=== PATIENT | male | born 1960 | race Caucasian/White ===

== ENCOUNTER → 2016-09-28 | Outpatient (CLI) | payer SELFPAY ==
[2016-09-28 07:33] LABS: Anion Gap 10 mmol/L; Blood Urea Nitrogen 18 mg/dL (9-20); Calcium 9.4 mg/dL (8.4-10.2); Carbon Dioxide 28 mmol/L (22-30); Chloride 102 mmol/L (98-107); Cholesterol 202 mg/dL (<200); Glucose 141 mg/dL (74-99); HDL Cholesterol 44 mg/dL (40-60); Non-African American GFR(MDRD) >60 (>60 ml/min/1.73 sqM); Potassium 4.1 mmol/L (3.5-5.1); Sodium 140 mmol/L (137-145)
[2016-09-28 09:12] LABS: Hemoglobin A1C 6.1 % (4.2-6.1)
== END | disposition home or self-care (01) ==
LOC: LABWHC1 06:49
PROVIDERS: ATTEND Internal Medicine
DX: E11.69 Type 2 diabetes mellitus with other specified complication (principal); E78.4 Other hyperlipidemia; E87.8 Other disorders of electrolyte and fluid balance, not elsewhere classified
CPT/HCPCS: 36415; 80048; 80061; 83036

== ENCOUNTER → 2018-01-25 | Outpatient (CLI) | payer OTHER ==
[2018-01-25 07:51] LABS: HCT 48.3 % (39.0-53.0); HGB 16.4 gm/dL (13.0-17.5); MCH 30.9 pg (25.0-35.0); MCV 90.7 fL (80.0-100.0); Mean Platelet Volume 6.5; Platelet Count 323 k/uL (150-450); RBC 5.33 m/uL (4.30-5.90); RDW 13.6 % (11.5-15.5); WBC 9.1 k/uL (3.8-10.6)
[2018-01-25 16:13] LABS: Hemoglobin A1C 7.8 % (4.0-6.0)
[2018-01-25 17:07] LABS: Albumin 4.2 g/dL (3.80-4.90); Albumin/Globulin Ratio 1.91 (1.20-2.10); Anion Gap 8.6 mmol/L (4.00-12.00); Calcium 9.7 mg/dL (8.7-10.3); Carbon Dioxide 28.4 mmol/L (21.6-31.8); Globulin 2.2 g/dL (2.1-3.7); LDL Cholesterol,Calculated 141.2 mg/dL (0.0-131.0); Potassium 4.7 mmol/L (3.5-5.5); Total Bilirubin 0.7 mg/dL (0.3-1.2); Total Protein 6.4 g/dL (6.2-8.2); VLDL Calculation 20.8 mg/dL (5.00-40.00)
== END ==
LOC: LABWHC1 07:10
PROVIDERS: ATTEND Internal Medicine
DX: E78.41 Elevated Lipoprotein(a) (principal); E87.8 Other disorders of electrolyte and fluid balance, not elsewhere classified; E11.69 Type 2 diabetes mellitus with other specified complication; N40.0 Benign prostatic hyperplasia without lower urinary tract symptoms; R53.83 Other fatigue
CPT/HCPCS: 36415; 80053; 80061; 83036; 84153; 85027

== ENCOUNTER 2018-03-01 13:44 | Emergency (ER) | payer OTHER ==
[2018-03-01 13:54] VITALS: RESP 18; TEMP 98.6
--- NOTE | 2018-03-01 14:18 | ED ---
General Adult HPI - General Chief complaint: Fall Stated complaint: Fall, neck injury Time Seen by Provider: 03/01/18 14:03 Source: patient, RN notes reviewed Mode of arrival: ambulatory Limitations: no limitations - History of Present Illness Initial comments: Patient is a pleasant 57-year-old male presenting to the emergency department following a fall. Patient slipped and fell on ice. Patient states he did land on his right elbow, right knee, tailbone. Patient is unclear whether or not he may have struck his neck. Patient denies any head injury or loss of consciousness. Patient states he was being examined by a physician assistant at surgery, his neck was being pushed on and he had some dizziness during that time. Patient states it was not uncomfortable. Patient denies any weakness. - Related Data Home Medications Medication Instructions Recorded Confirmed Losartan/Hydrochlorothiazide 2 tab PO DAILY 06/21/15 03/01/18 [Losartan-Hctz 50-12.5 mg Tab] Potassium Chloride [Klor-Con 10] 10 meq PO DAILY 03/01/18 03/01/18 metFORMIN HCL ER [Glucophage Xr] 500 mg PO DAILY 03/01/18 03/01/18 Allergies Allergy/AdvReac Type Severity Reaction Status Date / Time No Known Allergies Allergy Verified 03/01/18 14:50 Review of Systems ROS Statement: Those systems with pertinent positive or pertinent negative responses have been documented in the HPI. ROS Other: All systems not noted in ROS Statement are negative. Constitutional: Denies: fever Eyes: Denies: eye pain ENT: Denies: ear pain Respiratory: Denies: cough Cardiovascular: Denies: chest pain Endocrine: Denies: fatigue Gastrointestinal: Denies: abdominal pain Genitourinary: Denies: dysuria Musculoskeletal: Reports: back pain (Patient has discomfort left side of the sacral region.) Skin: Denies: rash Neurological: Denies: headache, weakness, confusion Past Medical History Past Medical History: Diabetes Mellitus, Hypertension History of Any Multi-Drug Resistant Organisms: None Reported Past Surgical History: No Surgical Hx Reported Additional Past Surgical History / Comment(s): R shoulder pioma removed, vascualr surgery L leg Past Psychological History: No Psychological Hx Reported Smoking Status: Never smoker Past Alcohol Use History: None Reported Past Drug Use History: None Reported General Exam Limitations: no limitations General appearance: alert, in no apparent distress Head exam: Present: atraumatic Eye exam: Present: normal appearance, PERRL, EOMI ENT exam: Present: normal oropharynx Neck exam: Present: normal inspection, other (C-collar is present). Absent: tenderness Respiratory exam: Present: normal lung sounds bilaterally Cardiovascular Exam: Present: regular rate, normal rhythm GI/Abdominal exam: Present: soft. Absent: distended, tenderness Extremities exam: Present: normal inspection, full ROM. Absent: tenderness Back exam: Present: tenderness (moderate tenderness left sacral region) Neurological exam: Present: alert, oriented X3, CN II-XII intact. Absent: motor sensory deficit Expanded Speech: Present: fluid speech Motor strength exam: RUE: 5, LUE: 5, RLE: 5, LLE: 5 Eye Response: (4) open spontaneously Motor Response: (6) obeys commands Verbal Response: (5) oriented Psychiatric exam: Present: normal affect, normal mood Skin exam: Present: normal color Course Vital Signs 03/01/18 13:49 Temperature 98.6 F Pulse Rate 78 Respiratory 18 Rate Blood Pressure 164/110 O2 Sat by Pulse 96 Oximetry Medical Decision Making - Medical Decision Making Patient reevaluated and resting comfortably in bed. Patient and family updated on results. - Radiology Data Radiology results: image reviewed (Cervical spine x-ray, pelvis x-ray, and sacral x-ray reveals no acute process.) Disposition Clinical Impression: Fall, Sacral contusion Disposition: HOME SELF-CARE Condition: Stable Instructions (If sedation given, give patient instructions): Back Pain (ED) Additional Instructions: [id number] Tylenol or Motrin as needed. Please follow-up with primary care physician in the next day or 2 for recheck. Return for weakness, worsening or changing symptoms or other concerns. Is patient prescribed a controlled substance at d/c from ED?: No Referrals: Lopez Edouard MD [Primary Care Provider] - 1-2 days Time of Disposition: 16:22
--- NOTE | 2018-03-01 15:48 | XR ---
EXAMINATION TYPE: XR pelvis AP view, XR sacrum coccyx DATE OF EXAM: 03/01/2018 CLINICAL HISTORY: pain TECHNIQUE: Three views of the sacrum and coccyx are submitted. COMPARISON: Sacral alae appear symmetric. No evidence for fracture or bony lesion. Sacroiliac joints are within normal limits. Visualized coccygeal segments are free of fracture or lesion. IMPRESSION: Normal study EXAMINATION TYPE: XR pelvis AP view, XR sacrum coccyx DATE OF EXAM: 03/01/2018 CLINICAL HISTORY: pain TECHNIQUE: Single view the pelvis is submitted. FINDINGS: No evidence for fracture, dislocation or bony lesion. Joint spaces are well-preserved. S I joints appear symmetric. Severe degenerative change lumbar spine. IMPRESSION: 1. No acute fracture or dislocation seen. ICD 10 NO FRACTURE, INITIAL EVALUATION
--- NOTE | 2018-03-01 15:50 | XR ---
EXAMINATION TYPE: XR cervical spine trauma DATE OF EXAM: 03/01/2018 CLINICAL HISTORY: pain COMPARISON: NONE TECHNIQUE: Frontal, lateral, oblique, swimmers, and open mouth view of the cervical spine are obtaine d. FINDINGS: The cervical spine is visualized in its entirety from C1 thru the top of T1 level. It is s atisfactory in alignment without evidence of acute fracture or dislocation. The pre-vertebral soft t issue appears within normal limits. Mild degenerative changes noted. The C1-C2 articulation is unrema rkable on the open mouth view. The oblique images are within normal limits. IMPRESSION: No acute fracture or dislocation is seen in the cervical spine.ICD 10 NO FRACTURE, INITI AL EVALUATION
[2018-03-01 16:47] VITALS: PULSE 82
[2018-03-01 17:10] VITALS: BP 143/83
== END 2018-03-01 17:08 | disposition home or self-care (01) ==
LOC: EC 13:44
DX: S30.0XXA Contusion of lower back and pelvis, initial encounter (principal); I10 Essential (primary) hypertension; E11.9 Type 2 diabetes mellitus without complications; Z79.84 Long term (current) use of oral hypoglycemic drugs; Z79.899 Other long term (current) drug therapy; W00.0XXA Fall on same level due to ice and snow, initial encounter; Y92.69 Other specified industrial and construction area as the place of occurrence of the external cause; Y99.0 Civilian activity done for income or pay
CPT/HCPCS: 72050; 72170; 72220; 99283

== ENCOUNTER → 2018-03-03 | Outpatient (CLI) | payer OTHER ==
--- NOTE | 2018-03-03 11:35 | XR ---
EXAMINATION TYPE: XR chest 2V, XR ribs LT DATE OF EXAM: 03/03/2018 COMPARISON: NONE HISTORY: Shortness of breath TECHNIQUE: Frontal and lateral views of the chest are obtained. FINDINGS: Scattered senescent parenchymal changes noted. Hyperinflation compatible with COPD. No evidence for infiltrate. No evidence for atelectasis. Heart size is stable. Mediastinal structures are stable and grossly unremarkable. No evidence for hilar prominence. Degenerative changes dorsal spine. IMPRESSION: 1. No evidence for acute pulmonary disease. EXAMINATION TYPE: XR chest 2V, XR ribs LT DATE OF EXAM: 03/03/2018 CLINICAL HISTORY: Pain, Fall Four views of the ribs fail demonstrate evidence for displaced rib fracture or secondary sign of rib fracture. Visualized lungs are clear. No evidence for pneumothorax. IMPRESSION: No displaced rib fractures seen. ICD 10 NO FRACTURE, INITIAL EVALUATION
== END | disposition home or self-care (01) ==
LOC: RADXRMAIN 11:09
PROVIDERS: ATTEND Emergency Medicine
DX: S20.20XD Contusion of thorax, unspecified, subsequent encounter (principal)
CPT/HCPCS: 71046

== ENCOUNTER 2018-07-21 19:56 | Emergency (ER) | payer OTHER ==
[2018-07-21 20:02] VITALS: RESP 20
[2018-07-21] MEDS ORDERED: ONDANSETRON 4 MG/2 ML VIAL IVP STA (20:19)
[2018-07-21] MEDS ORDERED: SODIUM CHLORIDE 0.9% 1,000 ML IV STA ×3 (20:19→21:37)
[2018-07-21] MEDS ORDERED: SODIUM CHLORIDE 0.9% 500 ML 500 ML IV STA (20:19)
--- NOTE | 2018-07-21 20:22 | ED ---
Nausea/Vomiting/Diarrhea HPI - General Chief complaint: Nausea/Vomiting/Diarrhea Stated complaint: Diarrhea,Dehydration-from [facility] Time Seen by Provider: 07/21/18 20:19 Source: patient, RN notes reviewed, old records reviewed Mode of arrival: ambulatory Limitations: no limitations - History of Present Illness Initial comments: This is a 57-year-old male the ER for evaluation. Presents today for evaluation regarding diarrhea, multiple wounds of diarrhea today. Patient has no abdominal pain. Mild nausea no vomiting. Patient states has similar complaint after eating some ice cream last night. Patient does have history of diabetes denying any again denies any abdominal pain. Patient just feels weak lightheaded and dizzy feels like he may pass out. - Related Data Home Medications Medication Instructions Recorded Confirmed Losartan/Hydrochlorothiazide 2 tab PO DAILY 06/21/15 07/21/18 [Losartan-Hctz 50-12.5 mg Tab] Potassium Chloride [Klor-Con 10] 10 meq PO DAILY 03/01/18 07/21/18 metFORMIN HCL ER [Glucophage Xr] 500 mg PO HS 03/01/18 07/21/18 Cinnamon Bark [Cinnamon] 500 mg PO DAILY 07/21/18 07/21/18 Allergies Allergy/AdvReac Type Severity Reaction Status Date / Time No Known Allergies Allergy Verified 07/21/18 20:32 Review of Systems ROS Statement: Those systems with pertinent positive or pertinent negative responses have been documented in the HPI. ROS Other: All systems not noted in ROS Statement are negative. Past Medical History Past Medical History: Diabetes Mellitus, Hypertension History of Any Multi-Drug Resistant Organisms: None Reported Past Surgical History: No Surgical Hx Reported Additional Past Surgical History / Comment(s): R shoulder pioma removed, vascualr surgery L leg Past Psychological History: No Psychological Hx Reported Smoking Status: Never smoker Past Alcohol Use History: None Reported Past Drug Use History: None Reported General Exam Limitations: no limitations General appearance: alert, in no apparent distress Head exam: Present: atraumatic, normocephalic, normal inspection Eye exam: Present: normal appearance, PERRL, EOMI. Absent: scleral icterus, conjunctival injection, periorbital swelling ENT exam: Present: normal exam, mucous membranes moist Neck exam: Present: normal inspection. Absent: tenderness, meningismus, lymphadenopathy Respiratory exam: Present: normal lung sounds bilaterally. Absent: respiratory distress, wheezes, rales, rhonchi, stridor Cardiovascular Exam: Present: normal rhythm, tachycardia, normal heart sounds. Absent: systolic murmur, diastolic murmur, rubs, gallop, clicks GI/Abdominal exam: Present: soft, normal bowel sounds. Absent: distended, tenderness, guarding, rebound, rigid Extremities exam: Present: normal inspection, full ROM, normal capillary refill. Absent: tenderness, pedal edema, joint swelling, calf tenderness Back exam: Present: normal inspection Neurological exam: Present: alert, oriented X3, CN II-XII intact Psychiatric exam: Present: normal affect, normal mood Skin exam: Present: warm, dry, intact, normal color. Absent: rash Course Vital Signs 07/21/18 19:58 Temperature 99.7 F H Pulse Rate 120 H Respiratory 20 Rate Blood Pressure 121/77 O2 Sat by Pulse 95 Oximetry - Reevaluation(s) Reevaluation #1: 07/21/18 21:34 Medical record reviewed Reevaluation #2: 07/21/18 21:34 Symptoms are significantly improved Medical Decision Making - Medical Decision Making 77 male the ER for evaluation, nausea vomiting diarrhea significant diarrhea. Patient has likely food reaction, patient sent better with Zofran and fluids here in the ER and can be discharged home - Lab Data Result diagrams: 07/21/18 20:40 07/21/18 20:40 Lab Results 07/21/18 07/21/18 Range/Units 20:40 20:40 WBC 10.0 (3.8-10.6) k/uL RBC 5.58 (4.30-5.90) m/uL Hgb 16.9 (13.0-17.5) gm/dL Hct 50.9 (39.0-53.0) % MCV 91.2 (80.0-100.0) fL MCH 30.3 (25.0-35.0) pg MCHC 33.2 (31.0-37.0) g/dL RDW 17.1 H (11.5-15.5) % Plt Count 250 (150-450) k/uL Neutrophils % 91 % Lymphocytes % 4 % Monocytes % 4 % Eosinophils % 1 % Basophils % 0 % Neutrophils # 9.1 H (1.3-7.7) k/uL Lymphocytes # 0.4 L (1.0-4.8) k/uL Monocytes # 0.4 (0-1.0) k/uL Eosinophils # 0.1 (0-0.7) k/uL Basophils # 0.0 (0-0.2) k/uL Anisocytosis Slight Sodium 135 L (137-145) mmol/L Potassium 3.6 (3.5-5.1) mmol/L Chloride 100 (98-107) mmol/L Carbon Dioxide 25 (22-30) mmol/L Anion Gap 10 mmol/L BUN 17 (9-20) mg/dL Creatinine 0.74 (0.66-1.25) mg/dL Est GFR (CKD-EPI)AfAm >90 (>60 ml/min/1.73 sqM) Est GFR (CKD-EPI)NonAf >90 (>60 ml/min/1.73 sqM) Glucose 326 H (74-99) mg/dL Calcium 8.9 (8.4-10.2) mg/dL Phosphorus 3.2 (2.5-4.5) mg/dL Magnesium 1.5 L (1.6-2.3) mg/dL Total Bilirubin 1.3 (0.2-1.3) mg/dL AST 19 (17-59) U/L ALT 28 (21-72) U/L Alkaline Phosphatase 122 (38-126) U/L Total Protein 6.8 (6.3-8.2) g/dL Albumin 4.1 (3.5-5.0) g/dL Disposition Clinical Impression: Dehydration, Gastroenteritis Disposition: HOME SELF-CARE Condition: Good Instructions (If sedation given, give patient instructions): Acute Diarrhea (ED) Is patient prescribed a controlled substance at d/c from ED?: No Referrals: Lopez Edouard MD [Primary Care Provider] - 1-2 days
[2018-07-21 21:04] LABS: ALT 28 U/L (21-72); AST 19 U/L (17-59); African American GFR (CKD) >90 (>60 ml/min/1.73 sqM); Albumin 4.1 g/dL (3.5-5.0); Alkaline Phosphatase 122 U/L (38-126); Anion Gap 10 mmol/L; Blood Urea Nitrogen 17 mg/dL (9-20); Calcium 8.9 mg/dL (8.4-10.2); Carbon Dioxide 25 mmol/L (22-30); Chloride 100 mmol/L (98-107); Glucose 326 mg/dL (74-99); Magnesium 1.5 mg/dL (1.6-2.3); Phosphorus 3.2 mg/dL (2.5-4.5); Potassium 3.6 mmol/L (3.5-5.1); Sodium 135 mmol/L (137-145); Total Bilirubin 1.3 mg/dL (0.2-1.3); Total Protein 6.8 g/dL (6.3-8.2)
[2018-07-21 21:11] LABS: Anisocytosis Slight; Basophils % (A) 0 %; Eosinophils # (A) 0.1 k/uL (0-0.7); Eosinophils % (A) 1 %; HCT 50.9 % (39.0-53.0); HGB 16.9 gm/dL (13.0-17.5); Lymphocytes # (A) 0.4 k/uL (1.0-4.8); Lymphocytes % (A) 4 %; MCH 30.3 pg (25.0-35.0); MCHC 33.2 g/dL (31.0-37.0); MCV 91.2 fL (80.0-100.0); Mean Platelet Volume 7.3; Monocytes # (A) 0.4 k/uL (0-1.0); Monocytes % (A) 4 %; Neutrophils # (A) 9.1 k/uL (1.3-7.7); Neutrophils % (A) 91 %; Platelet Count 250 k/uL (150-450); RBC 5.58 m/uL (4.30-5.90); RDW 17.1 % (11.5-15.5)
[2018-07-21] MEDS ORDERED: ONDANSETRON 4 MG ODT STARTER PACK 2 TAB BTL PO STA (21:32)
[2018-07-21] MEDS ORDERED: MAGNESIUM OXIDE 400 MG TAB PO STA (21:32)
[2018-07-21] MEDS ORDERED: INSULIN REGULAR 100 UNIT/ML VIAL IV ONE (21:37)
[2018-07-21 22:51] VITALS: BP 132/70; PULSE 108; TEMP 99.1
== END 2018-07-21 23:32 | disposition home or self-care (01) ==
LOC: EC 19:56
DX: E86.0 Dehydration (principal); K52.9 Noninfective gastroenteritis and colitis, unspecified; R00.0 Tachycardia, unspecified; E11.9 Type 2 diabetes mellitus without complications; I10 Essential (primary) hypertension; Z79.84 Long term (current) use of oral hypoglycemic drugs; Z79.899 Other long term (current) drug therapy; Z53.8 Procedure and treatment not carried out for other reasons
CPT/HCPCS: 36415; 80053; 83735; 84100; 85025; 99284; 96374; 96361 ×2; J2405; S0119

== ENCOUNTER → 2019-03-03 | Outpatient (CLI) | payer OTHER ==
[2019-03-03 08:55] LABS: HCT 48.3 % (39.0-53.0); HGB 16.4 gm/dL (13.0-17.5); MCH 30.9 pg (25.0-35.0); MCV 90.9 fL (80.0-100.0); Mean Platelet Volume 7.1; Platelet Count 333 k/uL (150-450); RBC 5.31 m/uL (4.30-5.90); RDW 13.3 % (11.5-15.5); WBC 7.3 k/uL (3.8-10.6)
[2019-03-03 16:53] LABS: African American GFR (CKD) 108.7 (60.0-200.0); Albumin 4.2 g/dL (3.80-4.90); Albumin/Globulin Ratio 2.21 (1.60-3.17); Anion Gap 9.1 mmol/L (4.00-12.00); BUN/Creat Ratio 13.33 Ratio (12.00-20.00); Calcium 9.1 mg/dL (8.7-10.3); Carbon Dioxide 29.9 mmol/L (21.6-31.8); Chol/HDL Ratio 5.16; Globulin 1.9 g/dL (1.6-3.3); LDL Cholesterol,Calculated 156.2 mg/dL (0.0-131.0); Non-African American GFR(CKD) 93.8 (60.0-200.0); Potassium 3.5 mmol/L (3.5-5.5); Total Bilirubin 0.7 mg/dL (0.2-1.2); Total Protein 6.1 g/dL (6.2-8.2); VLDL Calculation 26.8 mg/dL (5.00-40.00)
[2019-03-03 20:21] LABS: Hemoglobin A1C 12.2 % (4.0-6.0)
== END | disposition home or self-care (01) ==
LOC: LABWHC1 08:07
PROVIDERS: ATTEND Family Medicine
DX: E11.9 Type 2 diabetes mellitus without complications (principal); I10 Essential (primary) hypertension; R35.1 Nocturia; Z79.899 Other long term (current) drug therapy
CPT/HCPCS: 36415; 80053; 80061; 82150; 83036; 83690; 84153; 85027

== ENCOUNTER 2019-03-13 07:31 | Day surgery (SDC) | payer OTHER ==
[~2019-03-13 07:31] MED LIST: LACTATED RINGERS 1,000 ML IV SCH
[2019-03-13 07:53] VITALS: TEMP 98.4
[2019-03-13 08:05] LABS: Glucose,Whole Blood 279 mg/dL (75-99)
--- NOTE | 2019-03-13 08:43 | P.GSHP ---
History of Present Illness H&P Date: 03/13/19 Chief Complaint: Screening colonoscopy This is a 58-year-old male who presents today for colonoscopy. Patient had a previous colonoscopy approximately 6 years ago. He has a history of colon polyps. He presents today for screening. He is requesting to have no anesthesia for his procedure. Past Medical History Past Medical History: Diabetes Mellitus, Hypertension History of Any Multi-Drug Resistant Organisms: None Reported Past Surgical History: No Surgical Hx Reported Additional Past Surgical History / Comment(s): R shoulder LIPOMA removed, VARICOSE VEIN LEFT LEG Past Anesthesia/Blood Transfusion Reactions: No Reported Reaction Past Psychological History: No Psychological Hx Reported Smoking Status: Never smoker Past Alcohol Use History: None Reported Past Drug Use History: None Reported Medications and Allergies Home Medications Medication Instructions Recorded Confirmed Type Potassium Chloride [Klor-Con 10] 10 meq PO QAM 03/01/18 03/09/19 History metFORMIN HCL ER [Glucophage Xr] 500 mg PO HS 03/01/18 03/09/19 History Cinnamon Bark [Cinnamon] 500 mg PO DAILY 07/21/18 03/09/19 History Hydrochlorothiazide 12.5 mg PO QAM 03/09/19 03/09/19 History Losartan [Cozaar] 50 mg PO QAM 03/09/19 03/09/19 History Allergies Allergy/AdvReac Type Severity Reaction Status Date / Time No Known Allergies Allergy Verified 03/13/19 07:49 Surgical - Exam Vital Signs Temp Pulse Resp BP Pulse Ox 98.4 F 90 16 170/94 97 03/13/19 07:50 03/13/19 07:50 03/13/19 07:50 03/13/19 07:50 03/13/19 07:50 - General well developed, well nourished, no distress - Eyes PERRL - ENT normal pinna - Neck no masses - Respiratory normal expansion - Cardiovascular Rhythm: regular - Abdomen Abdomen: soft, non tender Results - Labs Abnormal Lab Results - Last 24 Hours (Table) 03/13/19 Range/Units 08:04 POC Glucose (mg/dL) 279 H (75-99) mg/dL Assessment and Plan Assessment: History of colon polyps. We'll perform colonoscopy.
--- NOTE | 2019-03-13 08:55 | P.OP ---
Date of Procedure: 03/13/19 Preoperative Diagnosis: Family history colonic Cancer Screening colonoscopy Postoperative Diagnosis: Diverticulosis Procedure(s) Performed: Colonoscopy Anesthesia: none Surgeon: Rome Cox Pathology: none sent Condition: stable Disposition: PACU Description of Procedure: The patient's placed on the endoscopy table in the lateral position. He received IV sedation. Digital rectal exam performed which revealed minimal internal hemorrhoids. Flexible colonoscope was then placed patient anus passed throughout the entire colon. The ileocecal valve was visualized. Cecum, ascending and transverse colon appeared normal. In the descending; was mild diverticular changes. The scope was then brought back the rectum and this appeared normal. Scope withdrawn from patient.
[2019-03-13 08:58] VITALS: RESP 17
[2019-03-13 09:03] LABS: Glucose,Whole Blood 281 mg/dL (75-99)
[2019-03-13 09:09] VITALS: BP 145/87; PULSE 77
== END 2019-03-13 09:26 | disposition home or self-care (01) ==
LOC: ORWHC2ENDO 07:31
PROVIDERS: ATTEND Surgery
DX: Z12.11 Encounter for screening for malignant neoplasm of colon (principal); K57.30 Diverticulosis of large intestine without perforation or abscess without bleeding; K64.8 Other hemorrhoids; Z86.010 Personal history of colon polyps; Z80.0 Family history of malignant neoplasm of digestive organs; E11.9 Type 2 diabetes mellitus without complications; I10 Essential (primary) hypertension; Z98.890 Other specified postprocedural states; Z79.84 Long term (current) use of oral hypoglycemic drugs; Z79.899 Other long term (current) drug therapy

== ENCOUNTER 2020-03-04 18:07 | Emergency (ER) | payer OTHER ==
[2020-03-04 18:17] VITALS: BP 137/91; PULSE 95; RESP 18; TEMP 98.7
--- NOTE | 2020-03-04 18:52 | ED ---
Lower Extremity Injury HPI - General Chief Complaint: Extremity Injury, Lower Stated Complaint: slip & fall/leg pain Time Seen by Provider: 03/04/20 18:22 Source: patient Mode of arrival: wheelchair Limitations: physical limitation - History of Present Illness Initial Comments: Patient is a 59-year-old male presenting to emergency Department with complaints of right leg pain after falling about 3 hours prior to arrival. Patient states he was walking outside towards a barn when he stepped on a sheet of metal that was covered in snow, patient states he fell with his right leg going forward in his left leg going backwards, doing the splits motion. Patient is complaining of pain in his right upper leg, posterior aspect. Patient states he has been able to walk around but states increased pain with sitting and sit to stand or any kind of stretching of the hamstring muscle. He denies hitting his head, no other injuries from this fall. He is not on blood thinners. He has no further complaints. - Related Data Home Medications Medication Instructions Recorded Confirmed Potassium Chloride [Klor-Con 10] 10 meq PO QAM 03/01/18 03/09/19 metFORMIN HCL ER [Glucophage Xr] 500 mg PO HS 03/01/18 03/09/19 Cinnamon Bark [Cinnamon] 500 mg PO DAILY 07/21/18 03/09/19 Hydrochlorothiazide 12.5 mg PO QAM 03/09/19 03/09/19 [hydroCHLOROthiazide] Losartan [Cozaar] 50 mg PO QAM 03/09/19 03/09/19 Allergies Allergy/AdvReac Type Severity Reaction Status Date / Time No Known Allergies Allergy Verified 03/04/20 18:17 Review of Systems ROS Statement: Those systems with pertinent positive or pertinent negative responses have been documented in the HPI. ROS Other: All systems not noted in ROS Statement are negative. Past Medical History Past Medical History: Diabetes Mellitus, Hypertension History of Any Multi-Drug Resistant Organisms: None Reported Past Surgical History: No Surgical Hx Reported Additional Past Surgical History / Comment(s): R shoulder LIPOMA removed, VARICOSE VEIN LEFT LEG Past Anesthesia/Blood Transfusion Reactions: No Reported Reaction Past Psychological History: No Psychological Hx Reported Smoking Status: Never smoker Past Alcohol Use History: None Reported Past Drug Use History: None Reported General Exam - General Exam Comments Initial Comments: GENERAL: Patient is well-developed and well-nourished. Patient is nontoxic and in no acute distress. HEAD: Atraumatic, normocephalic. EYES: Pupils equal round and reactive to light, extraocular movements intact, sclera anicteric, conjunctiva are normal. Eyelids were unremarkable. ENT: TMs normal, nares patent, oropharynx clear without exudates. Moist mucous membranes. NECK: Normal range of motion, supple without lymphadenopathy or JVD. LUNGS: Unlabored respirations. Breath sounds clear to auscultation bilaterally and equal. No wheezes rales or rhonchi. HEART: Regular rate and rhythm without murmurs, rubs or gallops. ABDOMEN: Soft, nontender, normoactive bowel sounds. No guarding, no rebound. No masses appreciated. : Deferred MUSCULOSKELETAL: Patient has pain with palpation of the right hamstring muscle, medial aspect. There is no bruising at this time. Patient does have full range of motion of his right knee. He is neurovascular intact. No clubbing or cyanosis. NEUROLOGICAL: Patient is alert and oriented x 3. Motor and sensory are also intact. Cranial nerves II through XII grossly intact. Symmetrical smile. Normal speech, normal gait. PSYCH: Normal mood, normal affect. SKIN: Warm, Dry, normal turgor, no rashes or lesions noted. Limitations: physical limitation Course Vital Signs 03/04/20 18:15 Temperature 98.7 F Pulse Rate 95 Respiratory 18 Rate Blood Pressure 137/91 O2 Sat by Pulse 96 Oximetry Medical Decision Making - Medical Decision Making Patient is a 59-year-old male presenting after he fell about 3 hours ago injuring his right hamstring. There are no other injuries from this fall. Exam is consistent with a right hamstring strain. We did recommend compression using Glen wraps as well as ice to the area for the first 2 days, may switch to heat after. Recommended alternating Tylenol and Motrin for discomfort. If symptoms persist without improvement after one week, follow-up with his regular doctor. He is in agreement with this plan of care. He is stable for discharge. Disposition Clinical Impression: Right hamstring muscle strain, Fall Disposition: HOME SELF-CARE Condition: Stable Instructions (If sedation given, give patient instructions): Hamstring Injury (ED) Additional Instructions: Please return to the Emergency Department if symptoms worsen or any other concerns. Trial of compression using Glen wraps for compression shorts, recommend alternating between Motrin and Tylenol for discomfort. May also try ice to the leg for the first 2 days and then try heat. If symptoms persist without improvement after one week, please follow-up with your regular doctor. Is patient prescribed a controlled substance at d/c from ED?: No Referrals: Lizbeth Greene MD [Primary Care Provider] - 1-2 days
== END 2020-03-04 19:01 | disposition home or self-care (01) ==
LOC: EC 18:07
DX: S76.311A Strain of muscle, fascia and tendon of the posterior muscle group at thigh level, right thigh, initial encounter (principal); E11.9 Type 2 diabetes mellitus without complications; I10 Essential (primary) hypertension; Z79.84 Long term (current) use of oral hypoglycemic drugs; Z79.899 Other long term (current) drug therapy; W01.0XXA Fall on same level from slipping, tripping and stumbling without subsequent striking against object, initial encounter; Y93.01 Activity, walking, marching and hiking; Y92.71 Barn as the place of occurrence of the external cause
CPT/HCPCS: 99283

== ENCOUNTER 2020-08-14 20:34 | Emergency (ER) | payer OTHER ==
[2020-08-14 20:45] VITALS: TEMP 98.8
--- NOTE | 2020-08-14 20:57 | ED ---
General Adult HPI - General Chief complaint: Recheck/Abnormal Lab/Rx Stated complaint: sent from for blood sugar Time Seen by Provider: 08/14/20 20:45 Source: patient, RN notes reviewed, old records reviewed Mode of arrival: ambulatory Limitations: no limitations - History of Present Illness Initial comments: 59-year-old male history of type 2 diabetes presenting for evaluation of abnormal urinalysis. Patient had a contacted by his primary care physician regarding a urinalysis that showed ketones in the urine. The physician had requested that the patient check his blood sugar but he does not have any supplies to check his blood sugar. Patient has no complaints he has been eating and drinking well. He does have an unexplained weight loss which is primary care physician is aware of. No fever. No dysuria. No physical complaints. - Related Data Home Medications Medication Instructions Recorded Confirmed Potassium Chloride [Klor-Con 10] 10 meq PO QAM 03/01/18 03/09/19 metFORMIN HCL ER [Glucophage Xr] 500 mg PO HS 03/01/18 03/09/19 Cinnamon Bark [Cinnamon] 500 mg PO DAILY 07/21/18 03/09/19 Hydrochlorothiazide 12.5 mg PO QAM 03/09/19 03/09/19 [hydroCHLOROthiazide] Losartan [Cozaar] 50 mg PO QAM 03/09/19 03/09/19 Allergies Allergy/AdvReac Type Severity Reaction Status Date / Time No Known Allergies Allergy Verified 08/14/20 20:41 Review of Systems ROS Statement: Those systems with pertinent positive or pertinent negative responses have been documented in the HPI. ROS Other: All systems not noted in ROS Statement are negative. Past Medical History Past Medical History: Diabetes Mellitus, Hypertension History of Any Multi-Drug Resistant Organisms: None Reported Past Surgical History: No Surgical Hx Reported Additional Past Surgical History / Comment(s): R shoulder LIPOMA removed, VARICOSE VEIN LEFT LEG Past Anesthesia/Blood Transfusion Reactions: No Reported Reaction Past Psychological History: No Psychological Hx Reported Smoking Status: Never smoker Past Alcohol Use History: None Reported Past Drug Use History: None Reported General Exam Limitations: no limitations General appearance: alert, in no apparent distress Head exam: Present: atraumatic, normocephalic Eye exam: Present: normal appearance, PERRL ENT exam: Present: normal exam Neck exam: Present: normal inspection. Absent: tenderness, meningismus Respiratory exam: Present: normal lung sounds bilaterally. Absent: respiratory distress, wheezes Cardiovascular Exam: Present: regular rate, normal rhythm GI/Abdominal exam: Present: soft. Absent: distended, tenderness Extremities exam: Present: normal inspection, normal capillary refill. Absent: pedal edema, calf tenderness Neurological exam: Present: alert, oriented X3, CN II-XII intact. Absent: motor sensory deficit Psychiatric exam: Present: normal affect, normal mood Skin exam: Present: warm, dry, intact. Absent: cyanosis, diaphoretic Course Vital Signs 08/14/20 20:41 Temperature 98.8 F Pulse Rate 99 Respiratory 16 Rate Blood Pressure 107/75 O2 Sat by Pulse 96 Oximetry Medical Decision Making - Medical Decision Making 59-year-old male type II diabetic. Sent in to rule out acidosis and ketoacidosis. Patient is not ketotic. He has an elevated blood sugar but no signs of diabetic ketoacidosis. No ketones in the urine, acetone negative, normal bicarbonate and anion gap. Patient reassured. He will maintain oral hydration. He will attempt to reduce his sugar intake. - Lab Data Result diagrams: 08/14/20 21:04 08/14/20 21:04 Lab Results 08/14/20 08/14/20 08/14/20 Range/Units 20:57 21:04 21:04 WBC 13.5 H (3.8-10.6) k/uL RBC 5.09 (4.30-5.90) m/uL Hgb 15.6 (13.0-17.5) gm/dL Hct 45.5 (39.0-53.0) % MCV 89.4 (80.0-100.0) fL MCH 30.6 (25.0-35.0) pg MCHC 34.2 (31.0-37.0) g/dL RDW 13.5 (11.5-15.5) % Plt Count 338 (150-450) k/uL MPV 7.1 Neutrophils % 75 % Lymphocytes % 16 % Monocytes % 5 % Eosinophils % 2 % Basophils % 1 % Neutrophils # 10.1 H (1.3-7.7) k/uL Lymphocytes # 2.2 (1.0-4.8) k/uL Monocytes # 0.7 (0-1.0) k/uL Eosinophils # 0.2 (0-0.7) k/uL Basophils # 0.1 (0-0.2) k/uL Sodium (137-145) mmol/L Potassium (3.5-5.1) mmol/L Chloride (98-107) mmol/L Carbon Dioxide (22-30) mmol/L Anion Gap mmol/L BUN (9-20) mg/dL Creatinine (0.66-1.25) mg/dL Est GFR (CKD-EPI)AfAm (>60 ml/min/1.73 sqM) Est GFR (CKD-EPI)NonAf (>60 ml/min/1.73 sqM) Glucose (74-99) mg/dL POC Glucose (mg/dL) 345 H (75-99) mg/dL POC Glu [employer] Professor ID Romain Domínguez Calcium (8.4-10.2) mg/dL Magnesium (1.6-2.3) mg/dL Total Bilirubin (0.2-1.3) mg/dL AST (17-59) U/L ALT (4-49) U/L Alkaline Phosphatase (38-126) U/L Total Protein (6.3-8.2) g/dL Albumin (3.5-5.0) g/dL Urine Color Yellow Urine Appearance Clear (Clear) Urine pH 6.0 (5.0-8.0) Ur Specific [place] 1.048 H (1.001-1.035) Urine Protein Negative (Negative) Urine Glucose (UA) 4+ H (Negative) Urine Ketones Negative (Negative) Urine Blood Negative (Negative) Urine Nitrite Negative (Negative) Urine Bilirubin Negative (Negative) Urine Urobilinogen <2.0 (<2.0) mg/dL Ur Leukocyte Esterase Negative (Negative) Acetone, Qual (Negative) 08/14/20 Range/Units 21:04 WBC (3.8-10.6) k/uL RBC (4.30-5.90) m/uL Hgb (13.0-17.5) gm/dL Hct (39.0-53.0) % MCV (80.0-100.0) fL MCH (25.0-35.0) pg MCHC (31.0-37.0) g/dL RDW (11.5-15.5) % Plt Count (150-450) k/uL MPV Neutrophils % % Lymphocytes % % Monocytes % % Eosinophils % % Basophils % % Neutrophils # (1.3-7.7) k/uL Lymphocytes # (1.0-4.8) k/uL Monocytes # (0-1.0) k/uL Eosinophils # (0-0.7) k/uL Basophils # (0-0.2) k/uL Sodium 134 L (137-145) mmol/L Potassium 3.4 L (3.5-5.1) mmol/L Chloride 97 L (98-107) mmol/L Carbon Dioxide 29 (22-30) mmol/L Anion Gap 8 mmol/L BUN 14 (9-20) mg/dL Creatinine 0.52 L (0.66-1.25) mg/dL Est GFR (CKD-EPI)AfAm >90 (>60 ml/min/1.73 sqM) Est GFR (CKD-EPI)NonAf >90 (>60 ml/min/1.73 sqM) Glucose 355 H (74-99) mg/dL POC Glucose (mg/dL) (75-99) mg/dL POC Glu [employer] Professor ID Calcium 9.3 (8.4-10.2) mg/dL Magnesium 2.0 (1.6-2.3) mg/dL Total Bilirubin 0.8 (0.2-1.3) mg/dL AST 14 L (17-59) U/L ALT 13 (4-49) U/L Alkaline Phosphatase 142 H (38-126) U/L Total Protein 6.3 (6.3-8.2) g/dL Albumin 3.8 (3.5-5.0) g/dL Urine Color Urine Appearance (Clear) Urine pH (5.0-8.0) Ur Specific [place] (1.001-1.035) Urine Protein (Negative) Urine Glucose (UA) (Negative) Urine Ketones (Negative) Urine Blood (Negative) Urine Nitrite (Negative) Urine Bilirubin (Negative) Urine Urobilinogen (<2.0) mg/dL Ur Leukocyte Esterase (Negative) Acetone, Qual Negative (Negative) Disposition Clinical Impression: Hyperglycemia due to type 2 diabetes mellitus Disposition: HOME SELF-CARE Condition: Good Instructions (If sedation given, give patient instructions): Diabetic Hyperglycemia (ED) Is patient prescribed a controlled substance at d/c from ED?: No Referrals: Lizbeth Greene MD [Primary Care Provider] - 1-2 days Time of Disposition: 21:56
[2020-08-14 20:59] LABS: Glucose,Whole Blood 345 mg/dL (75-99)
[2020-08-14 21:16] LABS: Basophils # (A) 0.1 k/uL (0-0.2); Basophils % (A) 1 %; Eosinophils # (A) 0.2 k/uL (0-0.7); Eosinophils % (A) 2 %; HCT 45.5 % (39.0-53.0); HGB 15.6 gm/dL (13.0-17.5); Lymphocytes # (A) 2.2 k/uL (1.0-4.8); Lymphocytes % (A) 16 %; MCH 30.6 pg (25.0-35.0); MCHC 34.2 g/dL (31.0-37.0); MCV 89.4 fL (80.0-100.0); Mean Platelet Volume 7.1; Monocytes # (A) 0.7 k/uL (0-1.0); Monocytes % (A) 5 %; Neutrophils # (A) 10.1 k/uL (1.3-7.7); Neutrophils % (A) 75 %; Platelet Count 338 k/uL (150-450); RBC 5.09 m/uL (4.30-5.90); RDW 13.5 % (11.5-15.5); WBC 13.5 k/uL (3.8-10.6)
[2020-08-14 21:28] LABS: ALT 13 U/L (4-49); AST 14 U/L (17-59); African American GFR (CKD) >90 (>60 ml/min/1.73 sqM); Albumin 3.8 g/dL (3.5-5.0); Alkaline Phosphatase 142 U/L (38-126); Anion Gap 8 mmol/L; Blood Urea Nitrogen 14 mg/dL (9-20); Calcium 9.3 mg/dL (8.4-10.2); Carbon Dioxide 29 mmol/L (22-30); Chloride 97 mmol/L (98-107); Glucose 355 mg/dL (74-99); Non-African American GFR(CKD) >90 (>60 ml/min/1.73 sqM); Potassium 3.4 mmol/L (3.5-5.1); Sodium 134 mmol/L (137-145); Total Bilirubin 0.8 mg/dL (0.2-1.3); Total Protein 6.3 g/dL (6.3-8.2)
[2020-08-14 21:32] LABS: Appearance,Urine Clear (Clear); Bilirubin,Urine Negative (Negative); Blood,Urine Negative (Negative); Color,Urine Yellow; Glucose,Urine (UA) 4+ (Negative); Ketones,Urine Negative (Negative); Leukocyte Esterase,Urine Negative (Negative); Nitrite,Urine Negative (Negative); Protein,Urine Negative (Negative); Urobilinogen,Urine <2.0 mg/dL (<2.0)
[2020-08-14 21:35] LABS: Specific Gravity,Urine 1.048 (1.001-1.035)
[2020-08-14 22:16] VITALS: BP 118/82; PULSE 88; RESP 18
== END 2020-08-14 22:10 | disposition home or self-care (01) ==
LOC: EC 20:34
DX: E11.65 Type 2 diabetes mellitus with hyperglycemia (principal); I10 Essential (primary) hypertension; Z79.84 Long term (current) use of oral hypoglycemic drugs; Z79.899 Other long term (current) drug therapy
CPT/HCPCS: 36415; 80053; 81003; 82009; 83735; 85025; 99283

== ENCOUNTER → 2020-08-14 | Outpatient (CLI) | payer OTHER ==
[2020-08-14 14:09] LABS: Appearance,Urine Clear (Clear); Bilirubin,Urine Negative (Negative); Blood,Urine Negative (Negative); Color,Urine Yellow; Glucose,Urine (UA) 4+ (Negative); Leukocyte Esterase,Urine Negative (Negative); Nitrite,Urine Negative (Negative); PH, Urine 6.5 (5.0-8.0); Protein,Urine Negative (Negative); Specific Gravity,Urine 1.043 (1.001-1.035); Urobilinogen,Urine <2.0 mg/dL (<2.0)
[2020-08-14 14:31] LABS: Ketones,Urine 2+ (Negative)
== END | disposition home or self-care (01) ==
LOC: LABWHC1 08:51
PROVIDERS: ATTEND Family Medicine
DX: N39.0 Urinary tract infection, site not specified (principal); R35.1 Nocturia
CPT/HCPCS: 81003; 88108

== ENCOUNTER 2020-09-15 06:37 | Day surgery (SDC) | payer OTHER ==
[2020-09-12 13:37] VITALS: BMI 39.1
[~2020-09-15 06:37] MED LIST changes: +ACETAMINOPHEN TAB 500 MG TAB PO PRN; +DEXAMETHASONE SOD PHOSPHATE 4 MG/ML 1 ML VIAL IV ONE; +HEPARIN SODIUM,PORCINE/PF 5,000 UNIT/0.5 ML SYRINGE SQ PRN; +HYDROmorphone 0.5 MG/0.5 ML SYRINGE IVP PRN; +LIDOCAINE 1% (10MG/ML) FOR IV START INTRADERMA PRN; +MIDAZOLAM 2 MG/2 ML VIAL IV PRN; +ONDANSETRON 4 MG/2 ML VIAL IVP ONE; +ceFAZolin 3 GM in SODIUM CHLORIDE 0.9% 100 ML IVPB PRN
[2020-09-15 07:07] LABS: Glucose,Whole Blood 329 mg/dL (75-99)
[2020-09-15] MEDS ORDERED: INSULIN ASPART (NovoLOG) 100 UNIT/ML VIAL SQ ONE ×2 (07:17→09:18)
[2020-09-15] MEDS ORDERED: MIDAZOLAM 2 MG/2 ML VIAL ONE (07:55)
[2020-09-15] MEDS ORDERED: KETOROLAC 15 MG/ML 1 ML VIAL ONE (07:55)
[2020-09-15] MEDS ORDERED: PROPOFOL 10 MG/ML 20 ML VIAL IV ONE (07:55)
[2020-09-15] MEDS ORDERED: SUCCINYLCHOLINE CHLORIDE 100 MG/5 ML SYR IV ONE (07:55)
[2020-09-15] MEDS ORDERED: GLYCOPYRROLATE 0.2 MG/ML 2 ML VIAL ONE (07:55)
[2020-09-15] MEDS ORDERED: ROCURONIUM 10 MG/ML (5 ML VIAL) IV ONE (07:55)
[2020-09-15] MEDS ORDERED: NEOSTIGMINE 1 MG/ML 10 ML VIAL ONE (07:55)
[2020-09-15] MEDS ORDERED: LIDOCAINE 1% INJ 10MG/ML (20 ML MDV) ONE (07:55)
[2020-09-15] MEDS ORDERED: HYDROmorphone (PF) 1 MG/ML ONE (07:55)
[2020-09-15] MEDS ORDERED: fentaNYL (PF) 50 MCG/ML 2 ML AMP ONE (07:55)
[2020-09-15] MEDS ORDERED: BUPIVACAINE (PF) 0.25% 30 ML VIAL SQ ONE ×2 (07:57→08:22)
--- NOTE | 2020-09-15 08:07 | P.GSHP ---
History of Present Illness H&P Date: 09/15/20 Chief Complaint: Cholelithiasis Is a 59-year-old male who presents today for laparoscopic cholecystectomy. Patient complaints of right quadrant pain. Found have evidence of gallstones. Past Medical History Past Medical History: Diabetes Mellitus, Hypertension, Osteoarthritis (OA) Additional Past Medical History / Comment(s): TYPE 2 History of Any Multi-Drug Resistant Organisms: None Reported Past Surgical History: No Surgical Hx Reported Additional Past Surgical History / Comment(s): R shoulder LIPOMA removed, VARICOSE VEIN SURGERY- LEFT LEG SEDRICK AREA ABSCESS DRAINED, Past Anesthesia/Blood Transfusion Reactions: No Reported Reaction Smoking Status: Never smoker - Past Family History Mother Family Medical History: Cancer Brother(s) Family Medical History: Cancer Additional Family Medical History / Comment(s): LEUKEMIA Medications and Allergies Home Medications Medication Instructions Recorded Confirmed Type Potassium Chloride [Klor-Con 10] 10 meq PO QAM 03/01/18 09/15/20 History Ibuprofen [Motrin Ib] 600 mg PO DIRECTED PRN 09/12/20 09/15/20 History Losartan/Hydrochlorothiazide 1 tab PO DAILY 09/12/20 09/15/20 History [Losartan-Hctz 100-25 mg Tab] Multivitamin [Multivitamins Adult 1 each PO DAILY 09/12/20 09/15/20 History Gummies] Pioglitazone [Actos] 15 mg PO DAILY 09/12/20 09/15/20 History Sulfamethox-Tmp 800-160Mg [Bactrim 1 tab PO Q12HR 09/12/20 09/15/20 History DS 800-160 mg] Allergies Allergy/AdvReac Type Severity Reaction Status Date / Time No Known Allergies Allergy Verified 09/15/20 06:58 Surgical - Exam Vital Signs Temp Pulse Resp BP Pulse Ox 98 F 99 16 143/78 98 09/15/20 06:56 09/15/20 06:56 09/15/20 06:56 09/15/20 06:56 09/15/20 06:56 - General well developed, well nourished, no distress - Eyes PERRL - ENT normal pinna - Neck no masses - Respiratory normal expansion - Cardiovascular Rhythm: regular - Abdomen Abdomen: soft, non tender Results - Labs Abnormal Lab Results - Last 24 Hours (Table) 09/15/20 Range/Units 07:05 POC Glucose (mg/dL) 329 H (75-99) mg/dL Assessment and Plan Plan: Lithiasis. We'll perform laparoscopic cholecystectomy
[2020-09-15] MEDS ORDERED: LACTATED RINGERS 1,000 ML IV ONE (08:31)
--- NOTE | 2020-09-15 08:39 | P.OP ---
Date of Procedure: 09/15/20 Preoperative Diagnosis: Cholelithiasis Postoperative Diagnosis: Cholelithiasis Procedure(s) Performed: Laparoscopic cholecystectomy Anesthesia: JOHNNY Surgeon: Rome Cox Estimated Blood Loss (ml): 5 Pathology: other (Gallbladder) Condition: stable Disposition: PACU Description of Procedure: The patient was placed on the operating table. The patient received a general endotracheal tube anesthesia. The patients abdomen was prepped and draped in the usual sterile fashion. Through an infraumbilical stab incision, the fascia of the anterior abdominal wall was grasped with a pair of Kochers and then the Veress needle was placed in the peritoneal cavity. Position of the Veress needle was confirmed with positive drop test. The abdomen was then insufflated. After adequate insufflation, the 10 mm trocar was placed in the peritoneal cavity. Following this the laparoscope was placed in the peritoneal cavity. The patient was placed in the head-up, right side up position and then a 5 mm trocar was placed in the right lateral and right subcostal position under direct visualization. A 8 mm trocar was placed in the epigastric position. The gallbladder was grasped in the fundus and infundibulum. Traction on the gallbladder was placed in the lateral and the cephalad positions. The triangle of Calot was visualized.. The cystic duct was bluntly dissected until the union of the cystic duct and common bile duct was seen. A critical view of safety was achieved. The cystic duct was then divided and sealed with the Harmonic scissors. A PDS Endoloop was then placed throughout the cystic duct stump. The cystic artery divided and sealed with the Harmonic scissors. The gallbladder was then removed from the liver bed using Harmonic scissors. The gallbladder was then extracted through the epigastric port site. Operative field was checked for any bleeding spots and Harmonic scissors was used to coagulate the liver bed. The abdomen was irrigated. The trocars were removed. The skin was closed using interrupted 3-0 Vicryl suture. Dermabond dressing were applied. The patient tolerated the procedure well.
[2020-09-15 08:46] VITALS: TEMP 97.1
[2020-09-15 08:46] LABS: Glucose,Whole Blood 297 mg/dL (75-99)
[2020-09-15 09:31] VITALS: RESP 16
[2020-09-15 11:17] LABS: Glucose,Whole Blood 275 mg/dL (75-99)
[2020-09-15 11:46] VITALS: BP 114/71; PULSE 90
== END 2020-09-15 11:55 | disposition home or self-care (01) ==
LOC: OR 06:37
PROVIDERS: ATTEND Surgery
DX: K80.10 Calculus of gallbladder with chronic cholecystitis without obstruction (principal); E11.9 Type 2 diabetes mellitus without complications; K21.9 Gastro-esophageal reflux disease without esophagitis; I10 Essential (primary) hypertension; M19.90 Unspecified osteoarthritis, unspecified site; Z98.890 Other specified postprocedural states; Z80.6 Family history of leukemia; Z79.899 Other long term (current) drug therapy
CPT/HCPCS: 88304; 47562; J2250; J1100; J2710; J0690; J2405; J2001; J3010; J1170; J1885; J0330; J2704; J1644

== ENCOUNTER 2020-09-20 15:00 | Emergency (ER) | payer OTHER ==
[2020-09-20 15:08] VITALS: TEMP 98.1
--- NOTE | 2020-09-20 16:11 | ED ---
General Adult HPI - General Chief complaint: Skin/Abscess/Foreign Body Stated complaint: Post op bleeding Source: patient, family, RN notes reviewed, old records reviewed Mode of arrival: ambulatory Limitations: no limitations - History of Present Illness Initial comments: 59-year-old well-appearing white male patient presents to the emergency room with complaints of incisional site bleeding. Patient had a lap cholecystectomy on September [address] Cox and states that the upper abdominal incision was bleeding and he couldn't get it to stop. States every time he put a Band-Aid on it, it would bleed through and when he tried to change the Band-Aid, it would start to rebleed. Steri-Strips are intact and there is no erythema or drainage noted. There is no evidence of active bleeding at this time. -: days(s) (1) Location: abdomen Radiation: non-radiation Severity scale (1-10): 4 Quality: other (Sore) Consistency: intermittent - Related Data Home Medications Medication Instructions Recorded Confirmed Potassium Chloride [Klor-Con 10] 10 meq PO QAM 03/01/18 09/15/20 Ibuprofen [Motrin Ib] 600 mg PO DIRECTED PRN 09/12/20 09/15/20 Losartan/Hydrochlorothiazide 1 tab PO DAILY 09/12/20 09/15/20 [Losartan-Hctz 100-25 mg Tab] Multivitamin [Multivitamins Adult 1 each PO DAILY 09/12/20 09/15/20 Gummies] Pioglitazone [Actos] 15 mg PO DAILY 09/12/20 09/15/20 Sulfamethox-Tmp 800-160Mg [Bactrim 1 tab PO Q12HR 09/12/20 09/15/20 DS 800-160 mg] Previous Rx's Medication Instructions Recorded Acetaminophen Tab [Tylenol] 650 mg PO Q6H #30 tab 09/15/20 Docusate [Colace] 100 mg PO BID #20 capsule 09/15/20 Ibuprofen [Motrin] 600 mg PO Q6HR PRN #40 tab 09/15/20 oxyCODONE HCL [OxyIR] 5 mg PO Q6H PRN 3 Days #10 tab 09/15/20 Allergies Allergy/AdvReac Type Severity Reaction Status Date / Time No Known Allergies Allergy Verified 09/20/20 15:08 Review of Systems ROS Statement: Those systems with pertinent positive or pertinent negative responses have been documented in the HPI. ROS Other: All systems not noted in ROS Statement are negative. Past Medical History Past Medical History: Diabetes Mellitus, Hypertension, Osteoarthritis (OA) Additional Past Medical History / Comment(s): TYPE 2 History of Any Multi-Drug Resistant Organisms: None Reported Past Surgical History: Cholecystectomy Additional Past Surgical History / Comment(s): R shoulder LIPOMA removed, VARICOSE VEIN SURGERY- LEFT LEG SEDRICK AREA ABSCESS DRAINED, Past Anesthesia/Blood Transfusion Reactions: No Reported Reaction Past Psychological History: No Psychological Hx Reported Smoking Status: Never smoker Past Alcohol Use History: None Reported Past Drug Use History: None Reported - Past Family History Mother Family Medical History: Cancer Brother(s) Family Medical History: Cancer Additional Family Medical History / Comment(s): LEUKEMIA General Exam Limitations: no limitations General appearance: alert, in no apparent distress Head exam: Present: atraumatic, normocephalic, normal inspection Eye exam: Present: normal appearance, PERRL, EOMI. Absent: scleral icterus, conjunctival injection, periorbital swelling ENT exam: Present: normal exam, normal oropharynx, mucous membranes moist Neck exam: Present: normal inspection, full ROM. Absent: tenderness, meningismus, lymphadenopathy Respiratory exam: Present: normal lung sounds bilaterally. Absent: respiratory distress, wheezes, rales, rhonchi, stridor, chest wall tenderness, decreased breath sounds, prolonged expiratory Cardiovascular Exam: Present: regular rate, normal rhythm, normal heart sounds. Absent: systolic murmur, diastolic murmur, rubs, gallop, clicks GI/Abdominal exam: Present: soft, tenderness, normal bowel sounds. Absent: guarding, rebound (Incisional sites), rigid Extremities exam: Present: normal inspection, full ROM, normal capillary refill. Absent: tenderness, pedal edema, joint swelling, calf tenderness Back exam: Present: normal inspection, full ROM. Absent: tenderness, CVA tende rness (R), CVA tenderness (L), muscle spasm, paraspinal tenderness, vertebral tenderness Neurological exam: Present: alert, oriented X3, CN II-XII intact Psychiatric exam: Present: normal affect, normal mood Skin exam: Present: warm, dry, intact, normal color. Absent: rash, cyanosis, diaphoretic, petechiae, pallor Course Vital Signs 09/20/20 15:05 Temperature 98.1 F Pulse Rate 82 Respiratory 20 Rate Blood Pressure 143/84 O2 Sat by Pulse 95 Oximetry Medical Decision Making - Medical Decision Making Patient came in because of concerns about bleeding from his surgical site. There is no active bleeding, drainage or erythema noted at this time. There is no hematoma under the incision site. He has an appointment with his primary care doctor on Tuesday and his surgeon on . He was directed to return to the emergency room with any worsening symptoms. Patient is agreeable to this plan of care. Case was discussed with Dr. Gonzalez. Disposition Clinical Impression: Encounter for evaluation of wound Disposition: HOME SELF-CARE Condition: Good Instructions (If sedation given, give patient instructions): Acute Wounds (ED) Additional Instructions: Return to emergency room with any worsening symptoms, pain, bleeding or infection. Keep your appointment with your primary care doctor on Tuesday and your surgeon on Is patient prescribed a controlled substance at d/c from ED?: No Referrals: Lizbeth Greene MD [Primary Care Provider] - 1-2 days Time of Disposition: 16:39
[2020-09-20 16:59] VITALS: BP 129/89; PULSE 89; RESP 18
== END 2020-09-20 16:59 | disposition home or self-care (01) ==
LOC: EC 15:00
DX: Z48.817 Encounter for surgical aftercare following surgery on the skin and subcutaneous tissue (principal); E11.9 Type 2 diabetes mellitus without complications; I10 Essential (primary) hypertension; M19.90 Unspecified osteoarthritis, unspecified site; Z90.49 Acquired absence of other specified parts of digestive tract
CPT/HCPCS: 99283

== ENCOUNTER → 2020-11-18 | Outpatient (CLI) | payer OTHER ==
--- NOTE | 2020-11-18 11:25 | CT ---
EXAMINATION TYPE: CT chest wo con DATE OF EXAM: 11/18/2020 COMPARISON: HISTORY: Pervious abnormal imaging CT DLP: 917.2 mGycm. Automated Exposure Control for Dose Reduction was Utilized. TECHNIQUE: CT scan of the thorax is performed without IV contrast. FINDINGS: Lack of contrast could compromise sensitivity of the exam. LUNGS: The right lower lobe lung nodule is seen on series 5, image 34 measuring 6 mm in size, questio nable clinical significance, no additional lesions are identified.. There is no pleural effusion or p neumothorax seen. The tracheobronchial tree is patent. MEDIASTINUM: Lack of IV contrast is noted to limit evaluation for mediastinal and especially hilar ad enopathy. There are no definitive greater than 1 cm hilar or mediastinal lymph nodes. No cardiomega ly or pericardial effusion is seen. Coronary artery calcifications are again noted. OTHER: No additional significant abnormality is seen. Thoracic spine shows spondylosis, flowing ante rior osteophytes with relative preservation of disc heights could represent diffuse idiopathic skelet al hyperostosis. IMPRESSION: Indeterminate right lower lobe lung nodule. Consider follow-up imaging in 6-12 months to assess for stability or any interval change. Coronary artery disease. Noncontrast exam.
== END | disposition home or self-care (01) ==
LOC: RADCTMAIN 07:00
PROVIDERS: ATTEND Family Medicine
DX: R91.1 Solitary pulmonary nodule (principal)
CPT/HCPCS: 71250

== ENCOUNTER 2020-11-26 08:05 | Day surgery (SDC) | payer OTHER ==
[2020-11-21 14:28] VITALS: BMI 41.0
[~2020-11-26 08:05] MED LIST changes: -ACETAMINOPHEN TAB 500 MG TAB PO PRN; -DEXAMETHASONE SOD PHOSPHATE 4 MG/ML 1 ML VIAL IV ONE; -HEPARIN SODIUM,PORCINE/PF 5,000 UNIT/0.5 ML SYRINGE SQ PRN; -HYDROmorphone 0.5 MG/0.5 ML SYRINGE IVP PRN; -MIDAZOLAM 2 MG/2 ML VIAL IV PRN; -ONDANSETRON 4 MG/2 ML VIAL IVP ONE; -ceFAZolin 3 GM in SODIUM CHLORIDE 0.9% 100 ML IVPB PRN
[2020-11-26 08:41] VITALS: RESP 16; TEMP 97.2
[2020-11-26] MEDS ORDERED: PROPOFOL 10 MG/ML 20 ML VIAL IV ONE (08:45)
[2020-11-26] MEDS ORDERED: LIDOCAINE 1% INJ 10MG/ML (20 ML MDV) ONE (08:45)
[2020-11-26 08:48] LABS: Glucose,Whole Blood 134 mg/dL (75-99)
--- NOTE | 2020-11-26 09:10 | P.PCN ---
Date of Procedure: 11/26/20 Procedure(s) Performed: Brief history: Patient is a pleasant 59-year-old white male scheduled for an elective upper endoscopy as well as colonoscopy as a part of evaluation of severe right upper quadrant abdominal pain for the last 3 months duration. He started having the symptoms and because of the surgery in September of this year. He lost about 80 pounds. Occasional right-sided abdominal pain and change in bowel habits. Procedure performed: Esophagogastroduodenoscopy with biopsy Colonoscopy and snare polypectomy Preoperative diagnosis: Right upper Quadrant abdominal pain, early satiety and progressive weight loss Lower abdominal pain and change in bowel habits. Anesthesia: MAC Procedure: After informed consent was obtained from the patient was brought into the endoscopy unit and IV sedation was administered by anesthesia under continuous monitoring. Initially upper endoscopy was done. The Olympus GF 160 video endoscope was inserted inserted into the mouth and esophagus intubated without any difficulty and was gradually advanced into the stomach and duodenum and carefully examined. The bulb and second part of the duodenum appeared normal. Biopsies were done from the duodenum to rule out celiac disease. The scope was then withdrawn into the stomach adequately insufflated with air and upon careful examination the antrum had mild gastritis and biopsies were done from this area. The his family. He was advised to follow with the biopsy results. body, cardia and fundus appeared normal. The scope was then withdrawn into the esophagus. The GE junction was located at 40 cm to the incisors. It appeared regular with no erythema erosions or ulcerations. Rest of the esophagus appeared normal. Patient tolerated the procedure well. At this time the patient continued to remain sedation. Initial digital rectal examination was normal. Olympus CF 160 video colonoscope was then inserted into the rectum and gradually advanced to the cecum without any difficulty. Careful examination was performed as the scope was gradually being withdrawn. The prep was excellent. The cecum, ascending colon, transverse colon, descending colon, sigmoid colon and rectum appeared normal. In the mid rectum there was a 5 mm polyp that was removed by snare polypectomy. Retroflexion was performed in the rectum and no lesions were noted. Patient tolerated the procedure well. Impression: 1. Upper endoscopy revealed mild antral gastritis but no evidence of esophagitis or peptic ulcer disease 2. Colonoscopy revealed a 5 mm rectal polyp status post polypectomy. Recommendations: Findings of this examination were discussed with the patient as well as his family. He was advised to follow with the biopsy results. If the biopsy result adenoma he can have a repeat colonoscopy in 5 years
[2020-11-26 09:31] VITALS: BP 118/73; PULSE 89
== END 2020-11-26 09:57 | disposition home or self-care (01) ==
LOC: ORWHC2ENDO 08:05
PROVIDERS: ATTEND Internal Medicine Gastroenterology
DX: K62.1 Rectal polyp (principal); K29.50 Unspecified chronic gastritis without bleeding; I10 Essential (primary) hypertension; E11.9 Type 2 diabetes mellitus without complications; E66.01 Morbid (severe) obesity due to excess calories; Z68.41 Body mass index [BMI] 40.0-44.9, adult; Z90.49 Acquired absence of other specified parts of digestive tract; Z98.890 Other specified postprocedural states; R49.0 Dysphonia; Z79.84 Long term (current) use of oral hypoglycemic drugs; Z79.4 Long term (current) use of insulin; Z79.899 Other long term (current) drug therapy
CPT/HCPCS: 88305; 45385; 43239; J2001; J2704

== ENCOUNTER → 2021-01-12 | Outpatient (CLI) | payer OTHER ==
--- NOTE | 2021-01-12 10:18 | US ---
EXAMINATION TYPE: US kidneys/renal and bladder DATE OF EXAM: 01/12/2021 COMPARISON: NONE CLINICAL HISTORY: R31.1 hematuria. EXAM MEASUREMENTS: Right Kidney: 12.4 x 5.0 x 6.9 cm Left Kidney: 12.4 x 5.8 x 5.1 cm Patient of large body habitus. Right Kidney: measures large Left Kidney: measures large Bladder: wnl There is no evidence for hydronephrosis at this point in time. No nephrolithiasis is seen. No angelic s are identified. The urinary bladder is anechoic. Bilateral ureteral jets are seen. IMPRESSION: No significant abnormality to account for the patient's symptoms. All
== END | disposition home or self-care (01) ==
LOC: RADUSWWP 09:32
PROVIDERS: ATTEND Urology
DX: R31.9 Hematuria, unspecified (principal)
CPT/HCPCS: 76770

== ENCOUNTER 2024-08-13 11:43 | Day surgery (SDC) | payer MEDICARE, OTHER ==
[2024-08-08 16:15] VITALS: BMI 48.6
[~2024-08-13 11:43] MED LIST changes: +ALPRAZolam 0.25 MG TAB PO PRN; -LACTATED RINGERS 1,000 ML IV SCH; -LIDOCAINE 1% (10MG/ML) FOR IV START INTRADERMA PRN; +NITROGLYCERIN SL TABS 0.4 MG TAB SUBLINGUAL PRN
[2024-08-13] MEDS: IV FLUID CONTINUATION 1,000 ML IV ONE (12:15)
[2024-08-13] MEDS: SODIUM CHLORIDE 0.9% 1,000 ML in EMPTY BAG 1 BAG IV SCH (12:28)
[2024-08-13] MEDS: ASPIRIN 325 MG TAB PO ONE (12:29)
[2024-08-13 12:37] VITALS: RESP 16; TEMP 98.1
[2024-08-13] MEDS: ALPRAZolam 0.5 MG TAB PO PRN (12:38)
[2024-08-13 12:43] LABS: Glucose,Whole Blood 155 mg/dL (70-110)
[2024-08-13] MEDS: HEPARIN SODIUM,PORCINE 10,000 UNIT in SODIUM CHLORIDE 0.9% 1,000 ML IRRIGATION PRN (14:30)
[2024-08-13] MEDS: HEPARIN SODIUM,PORCINE (1 ML) 2,500 UNIT in SODIUM CHLORIDE 0.9% 250 ML IRRIGATION PRN (14:30)
[2024-08-13] MEDS: fentaNYL (PF) 50 MCG/1 ML VIAL IVP ONE (14:38)
[2024-08-13] MEDS: MIDAZOLAM 2 MG/2 ML VIAL IVP ONE (14:38)
[2024-08-13] MEDS: LIDOCAINE 1% INJ 10MG/ML (20 ML MDV) SQ ONE (14:46)
[2024-08-13] MEDS: VERAPAMIL SYRINGE (5 MG/10 ML) INTRAARTER ONE (14:46)
[2024-08-13] MEDS: HEPARIN SODIUM 1,000 UN/ML (10ML VL) IV ONE (14:50)
[2024-08-13] MEDS: IOPAMIDOL-370 100ML BTL INJ ONE ×2 (15:07→15:08)
--- NOTE | 2024-08-13 15:31 | P.CARDCATH ---
Description of Procedure: PROCEDURES PERFORMED: Left heart catheterization, bilateral coronary angiography, ultrasound guided arterial access, left ventriculogram INDICATION: Abnormal stress test CONSENT:I have discussed the risks, benefits and alternative therapies for the above-mentioned procedure and for both sedation/analgesia as well as necessary blood product administration, if indicated, as they pertain to this patient. The patient has indicated understanding and acceptance of the risks and procedures discussed. PROCEDURE: After the risks, benefits and alternatives of the above mentioned procedure explained in detail with the patient, informed consent was obtained. Patient was taken to the catheterization lab and prepped and draped in usual fashion. Ultrasound guidance was used to assess for arterial access. 1% lidocaine was used to anesthetize the right radial artery. A 6-Moldovan sheath was placed in the right radial artery using modified Seldinger technique and ultrasound guidance. Left coronary angiography was performed with a 5-Moldovan JL 3.5 catheter and right coronary angiography was performed with a 5-Moldovan FR5 catheter in various views. A 5-Moldovan pigtail catheter was inserted into the left ventricle and pressure measurements were obtained. Left ventriculogram was performed in the LAMB projection. The right radial sheath was removed and a TR band was placed with hemostasis achieved. The patient tolerated the procedure well. Patient was transported back to the post catheterization holding area in stable condition. Conscious Sedation: Patient was monitored under the direct supervision of myself for conscious sedation using Versed and fentanyl for a total duration of 20 minutes HEMODYNAMICS: Aorta: 143/76 LV: 141/12, LVEDP 19 Left ventriculogram: Left ventricular EF 50 to 55% with no wall motion abnormalities, no mitral regurgitation SELECTIVE CORONARY ARTERIOGRAPHY: LEFT MAIN: The left main is a large caliber vessel which bifurcates into the LAD and circumflex. There is no significant stenosis. LEFT ANTERIOR DESCENDING CORONARY ARTERY: LAD is a large caliber vessel which wraps around to the apex. There are mild luminal irregularities of the proximal to mid LAD giving off a moderate caliber diagonal 1 branch. The mid to distal/apical LAD has diffuse disease in the 40 to 50% stenosis range with more focal apical 80% stenosis. LEFT CIRCUMFLEX CORONARY ARTERY: Left circumflex is a large caliber vessel with mild luminal irregularities of the proximal to mid circumflex. OM1 has 30% sten osis. It gives off the PDA and is the dominant vessel. The distal circumflex leading to the PDA is fairly small caliber and has a 70 to 80% PDA stenosis. RIGHT CORONARY ARTERY: The right coronary artery is a small caliber vessel which gives off an acute marginal branch and is the non-dominant vessel. There is mid 80% stenosis. FINAL IMPRESSION: 1. Multivessel CAD as described above including 80% nondominant small caliber RCA, 70 to 80% small caliber distal circumflex into the PDA, diffuse mid to apical LAD stenosis in the 40 to 50% stenosis range with more focal 80% stenosis 2. Mildly elevated left sided filling pressures 3. Left ventricular EF 50 to 55% PLAN: 1. Aggressive risk factor modification per most recent ACC/AHA guidelines. 2. Given patient relatively asymptomatic with preserved EF would attempt medical therapy. If he has more consistent angina type symptoms may consider intervention of distal circumflex however smaller caliber or apical LAD however fairly diffuse disease of the apical LAD.
[2024-08-13 18:48] VITALS: BP 135/73; PULSE 70
== END 2024-08-13 18:15 | disposition home or self-care (01) ==
LOC: CATHCVL 11:43
PROVIDERS: ATTEND Internal Medicine
DX: I25.10 Atherosclerotic heart disease of native coronary artery without angina pectoris (principal); I10 Essential (primary) hypertension; E11.9 Type 2 diabetes mellitus without complications; E78.2 Mixed hyperlipidemia; Z79.82 Long term (current) use of aspirin; Z79.899 Other long term (current) drug therapy; Z79.84 Long term (current) use of oral hypoglycemic drugs
CPT/HCPCS: 93458; 99152; C1769; C1894; J2250; J1644 ×3; J2003; Q9967; J3010